=== PATIENT | female | born 1995 | race Caucasian/White ===

== ENCOUNTER 2019-09-10 06:31 | Day surgery (SDC) | payer OTHER | END 2019-09-10 17:50 | disposition home or self-care (01) | LOC: CIR.AMB 06:31 | PROVIDERS: ATTEND Obstetrics & Gynecology | DX: O02.1 Missed abortion (principal) ==

== ENCOUNTER 2019-11-17 12:09 | Emergency (ER) | payer OTHER ==
[~2019-11-17] VITALS: Ht 154.9 cm; Wt 93.9 kg
[2019-11-17] MEDS ORDERED: ADIPEX-P37.5 MG PO (12:26)
[2019-11-17] MEDS ORDERED: SPRINTEC 28 DA1 EACH PO (12:27)
== END 2019-11-17 19:58 | disposition home or self-care (01) ==
LOC: ER 12:09
DX: O20.8 Other hemorrhage in early pregnancy (principal)

== ENCOUNTER 2019-11-21 14:00 | Day surgery (SDC) | payer OTHER ==
[~2019-11-21 14:00] MED LIST: ADIPEX-P37.5 MG PO; SPRINTEC 28 DA1 EACH PO
== END 2019-11-21 22:40 | disposition home or self-care (01) ==
LOC: CIR.AMB 14:00
PROVIDERS: ATTEND Obstetrics & Gynecology
DX: O03.4 Incomplete spontaneous abortion without complication (principal); Z20.828 Contact with and (suspected) exposure to other viral communicable diseases